=== PATIENT | female | born 1965 | race Caucasian/White ===

== ENCOUNTER 2023-04-03 08:36 | Outpatient (CLI) | payer BC, SELFPAY ==
--- NOTE | ~2023-04-03 | MM_ITS ---
EXAMINATION: MM screening olga BI w jermaine HISTORY: Screening mammogram TECHNIQUE: Craniocaudal and mediolateral oblique 3-D tomosynthesis images were obtained and synthetic 2-D images were generated. CAD analysis was submitted and interpreted. COMPARISON: 09/25/2018 bilateral screening mammogram BREAST PARENCHYMAL COMPOSITION: There are scattered areas of fibroglandular density. FINDINGS: Scattered bilateral benign calcifications. Stable left intramammary and bilateral axillary lymph nodes. There is no evidence of suspicious mass, calcification, or architectural distortion to s uggest malignancy in either breast. There has been no suspicious interval change. IMPRESSION: 1. No mammographic evidence of malignancy. 2. Recommend routine screening mammography in one year. BI-RADS Category 2: Benign finding(s). Reviewed, dictated and finalized at location A. 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
== END 2023-04-03 08:37 | disposition home or self-care (01) ==
LOC: ANHIMG 08:42
PROVIDERS: PCP Nurse Practitioner; Visit Provider Obstetrics & Gynecology
DX: Z12.31 Encounter for screening mammogram for malignant neoplasm of breast (principal)
CPT/HCPCS: 77063; 77067

== ENCOUNTER 2024-04-06 08:10 | Outpatient (CLI) | payer BC, SELFPAY ==
--- NOTE | ~2024-04-06 | MM_ITS ---
EXAMINATION: MM screening olga BI w jermaine HISTORY: Screening TECHNIQUE: Craniocaudal and mediolateral oblique 3-D tomosynthesis images were obtained and synthetic 2-D images were generated. CAD analysis was submitted and interpreted. COMPARISON: Comparison to multiple prior studies sequentially, with oldest reviewed study dated 12/28. BREAST PARENCHYMAL COMPOSITION: Not dense: There are scattered areas of fibroglandular density. FINDINGS: There is no evidence of suspicious mass, calcification, or architectural distortion to sugg est malignancy in either breast. There has been no suspicious interval change. IMPRESSION: 1. No mammographic evidence of malignancy. 2. Recommend routine screening mammography in one year. BI-RADS Category 1: Negative Reviewed, dictated and finalized at location B. [employer]
== END 2024-04-06 08:11 | disposition home or self-care (01) ==
LOC: ANHIMG 08:14
PROVIDERS: PCP Nurse Practitioner; Visit Provider Obstetrics & Gynecology
DX: Z12.31 Encounter for screening mammogram for malignant neoplasm of breast (principal)
CPT/HCPCS: 77063; 77067